=== PATIENT | female | born 1955 | race American Indian/Alaskan Native ===

== ENCOUNTER 2020-07-30 19:40 | Emergency (ER) | payer MEDICARE ==
[2020-07-30 22:02] VITALS: BP 173/68
[2020-07-30] MEDS ORDERED: oxyCODONE /ACETAMINOPHEN 5-325MG TAB PO ONE (22:52)
--- NOTE | 2020-07-30 22:58 | Emergency Department Report ---
ED Fall HPI - General Chief Complaint: Fall Stated Complaint: FELL/RIB PAIN Time Seen by Provider: 07/30/20 22:48 Source: patient, family Mode of arrival: Ambulatory - History of Present Illness Initial Comments: Patient is a 65-year-old female who presents for left lateral chest wall pain status post fall. Patient states she was getting up from toilet and right leg became weak causing her to fall. Patient states she struck her left lateral chest wall versus bathtub. There was no LOC, patient was immediately ambulatory after fall, patient called ambulance herself. Pain is rated at 5/10 soreness sharp, exacerbated by inspiration , There is no hemoptysis no bruising or swelling. MD Complaint: fall - Related Data Previous Rx's Medication Instructions Recorded Last Taken Type Acetaminophen/Codeine [Tylenol 1 tab PO Q6H PRN #12 tab 07/30/20 Unknown Rx /Codeine # 3 tab] Allergies Allergy/AdvReac Type Severity Reaction Status Date / Time No Known Allergies Allergy Unverified 07/30/20 22:03 ED Review of Systems ROS: Stated complaint: FELL/RIB PAIN Other details as noted in HPI Constitutional: denies: chills, fever Eyes: denies: eye pain, eye discharge, vision change ENT: denies: ear pain, throat pain Respiratory: denies: cough, shortness of breath, wheezing Cardiovascular: as per HPI, chest pain (left lateral chest wall pain ) Endocrine: no symptoms reported Gastrointestinal: denies: abdominal pain, nausea, diarrhea Genitourinary: denies: urgency, dysuria, discharge Musculoskeletal: denies: back pain, joint swelling, arthralgia Skin: as per HPI Neurological: denies: headache, weakness, paresthesias Psychiatric: denies: anxiety, depression Hematological/Lymphatic: denies: easy bleeding, easy bruising ED Past Medical Hx - Past Medical History Previous Medical History?: Yes Hx Diabetes: Yes - Surgical History Past Surgical History?: Yes Additional Surgical History: Bilateral toe amputation - Social History Smoking Status: Never Smoker Substance Use Type: None - Medications Home Medications: Home Medications Medication Instructions Recorded Confirmed Last Taken Type Acetaminophen/Codeine [Tylenol 1 tab PO Q6H PRN #12 tab 07/30/20 Unknown Rx /Codeine # 3 tab] ED Physical Exam - General Limitations: No Limitations General appearance: alert, in no apparent distress - Head Head exam: Present: normocephalic, normal inspection - Expanded Head Exam Expanded Head exam: Absent: laceration, abrasion, contusion, hematoma - Eye Eye exam: Present: normal appearance, PERRL, EOMI. Absent: periorbital swelling, periorbital tenderness Pupils: Present: normal accommodation - ENT ENT exam: Present: normal orophraynx, mucous membranes moist, TM's normal bilaterally, normal external ear exam - Expanded ENT Exam Expanded Ear exam: Present: normal external inspection Mouth exam: Present: normal external inspection Throat exam: Positive: normal inspection - Neck Neck exam: Present: normal inspection, full ROM. Absent: tenderness, meningismus - Expanded Neck Exam Expanded Neck exam: Absent: tenderness (rom intact and unrestricted ), midline deformity, anterior neck swelling - Respiratory Respiratory exam: Present: normal lung sounds bilaterally, chest wall tenderness (left latera chest wall no crepitus no echycmosis pain is increased with movemt. ). Absent: respiratory distress, wheezes, stridor - Cardiovascular Cardiovascular Exam: Present: regular rate, normal rhythm, normal heart sounds. Absent: systolic murmur, diastolic murmur, rubs, gallop - GI/Abdominal GI/Abdominal exam: Present: soft, normal bowel sounds. Absent: distended, tenderness, bruit, hernia - Rectal Rectal exam: Present: deferred - Extremities Exam Extremities exam: Present: normal inspection, full ROM, normal capillary refill. Absent: tenderness - Back Exam Back exam: Present: normal inspection, full ROM. Absent: tenderness, CVA tenderness (R), CVA tenderness (L), muscle spasm - Neurological Exam Neurological exam: Present: alert, altered, oriented X3, CN II-XII intact, normal gait - Psychiatric Psychiatric exam: Present: normal affect, normal mood - Skin Skin exam: Present: warm, dry, intact, normal color. Absent: rash ED Course Vital Signs 07/30/20 21:52 Temperature 98.8 F Pulse Rate 72 Respiratory 18 Rate Blood Pressure 173/68 O2 Sat by Pulse 98 Oximetry ED Medical Decision Making - Radiology Data Radiology results: pending, report reviewed, image reviewed LEFT RIB SERIES WITH PA CHEST, 4 VIEWS INDICATION / CLINICAL INFORMATION: Left rib pain. Patient fell a few days ago COMPARISON: None FINDINGS: There are nondisplaced fractures through the posterior lateral aspect of the ninth left rib and 8th left rib. Single view of the chest shows mild blunting of the left costophrenic angle possibly indicating small hemothorax related to left lower rib fractures. There is no pneumothorax identified. Both lungs are otherwise clear. Heart size and pulmonary vascularity are normal. IMPRESSION: Line 1. Nondisplaced fractures of the left posterior lateral eighth and ninth ribs. 2. Mild blunting of the left costophrenic angle possibly representing small left hemothorax. Signer Name: Ludy Mireles MD Signed: 07/30/2020 11:19 PM Workstation Name: [id number] Transcribed By: Dictated By: Ludy Mireles MD Electronically Authenticated By: Ludy Mireles MD Signed Date/Time: 07/30/202318 DD/ 15 TD/TT: - Medical Decision Making Chest x-ray demonstrates left posterior lateral eighth and ninth rib fractures. There is no fever chills there is no cough no hemoptysis no shortness of breath no wheezing no stridor. Critical care attestation.: If time is entered above; I have spent that time in minutes in the direct care of this critically ill patient, excluding procedure time. ED Disposition Clinical Impression: Left rib fracture Qualifiers: Encounter type: initial encounter Rib fracture type: multiple ribs Fracture type: closed Qualified Code(s): S22.42XA - Multiple fractures of ribs, left side, initial encounter for closed fracture Disposition: DC-01 TO HOME OR SELFCARE Is pt being admited?: No Does the pt Need Aspirin: No Condition: Stable Instructions: Rib Fracture, [id number] Additional Instructions: Follow-up with your doctor in 2 to 3 days. Take medications as prescribed. Re turn to emergency should symptoms worsen. Prescriptions: Acetaminophen/Codeine [Tylenol /Codeine # 3 tab] 1 tab PO Q6H PRN #12 tab PRN Reason: Pain , Severe (7-10) Referrals: CHLOE READ MD [Staff Physician] - 3-5 Days Forms: Work/School Release Form(ED) Time of Disposition: 23:38
--- NOTE | 2020-07-30 23:24 | XRay Report ---
LEFT RIB SERIES WITH PA CHEST, 4 VIEWS INDICATION / CLINICAL INFORMATION: Left rib pain. Patient fell a few days ago COMPARISON: None FINDINGS: There are nondisplaced fractures through the posterior lateral aspect of the ninth left rib and 8th l eft rib. Single view of the chest shows mild blunting of the left costophrenic angle possibly indicating small hemothorax related to left lower rib fractures. There is no pneumothorax identified. Both lungs are otherwise clear. Heart size and pulmonary vascularity are normal. IMPRESSION: Line 1. Nondisplaced fractures of the left posterior lateral eighth and ninth ribs. 2. Mild blunting of the left costophrenic angle possibly representing small left hemothorax. Signer Name: Ludy Mireles MD Signed: 07/30/2020 11:19 PM Workstation Name: [id number]
== END 2020-07-30 23:45 | disposition home or self-care (01) ==
LOC: ED 19:40
DX: S22.32XA Fracture of one rib, left side, initial encounter for closed fracture (principal); E11.9 Type 2 diabetes mellitus without complications; Z98.890 Other specified postprocedural states; Z79.899 Other long term (current) drug therapy; W19.XXXA Unspecified fall, initial encounter; Y93.89 Activity, other specified; Y92.89 Other specified places as the place of occurrence of the external cause; Y99.8 Other external cause status